=== PATIENT | female | born 1965 | race Caucasian/White ===

== ENCOUNTER 2018-11-15 07:25 | Outpatient (CLI) | payer OTHER ==
[2018-11-15 11:25] LABS: BASOPHILS # (AUTO) 0.1 10^3/uL (0.0-0.1); BASOPHILS % (AUTO) 1.1 %; EOSINOPHILS % (AUTO) 0.7 %; HGB - HEMOGLOBIN 9.7 g/dL (12.0-16.0); LYMPHOCYTES # (AUTO) 1.5 10^3/uL (1.5-3.5); LYMPHOCYTES % (AUTO) 30.4 %; MEAN CORPUSCULAR HEMOGLOBIN 26.5 pg (27.0-31.0); MEAN CORPUSCULAR HGB CONC 32.8 g/dL (32.0-36.0); MEAN CORPUSCULAR VOLUME 80.6 fL (81.0-99.0); MEAN PLATELET VOLUME 8.8 fL (7.9-10.8); MONOCYTES # (AUTO) 0.4 10^3/uL (0.0-1.0); MONOCYTES % (AUTO) 8.2 %; NEUTROPHILS % (AUTO) 59.6 %; PLT - PLATELET COUNT 305 10^3/uL (130-450); RED BLOOD COUNT 3.66 10^6/uL (4.20-5.40); RED CELL DISTRIBUTION WIDTH 22.5 % (12.0-15.0)
[2018-11-15 11:26] LABS: RBC MORPHOLOGY (MULTIPLE) 2+ ANISOCYTOSIS (NORMAL)
[2018-11-15 11:49] LABS: % IRON SATURATION 5 % (20-50); ALBUMIN/GLOBULIN RATIO 1.4 (1.0-2.2); ALKALINE PHOSPHATASE 67 IU/L (42-121); ALT ALANINE AMINOTRANSFERASE 27 IU/L (10-60); AST ASPARTATE AMINOTRANSFERASE 28 IU/L (10-42); BILIRUBIN,TOTAL 0.4 mg/dL (0.2-1.0); BUN - BLOOD UREA NITROGEN 13 mg/dL (6-20); CALCIUM 8.8 mg/dL (8.5-10.3); CARBON DIOXIDE - CO2 25 mmol/L (21-32); CHLORIDE 103 mmol/L (101-111); CHOLESTEROL 189 mg/dL; CREATININE 0.8 mg/dL (0.4-1.0); CRP HIGH SENSITIVITY 2.2 mg/L; GFR - MDRD 75 (>89); GLUCOSE 102 mg/dL (70-100); HDL CHOLESTEROL 64 mg/dL; IRON 20 ug/dL (28-170); LDL CHOLESTEROL,CALCULATED 110 mg/dL; LDL/HDL RATIO 1.7 (<4.4); SODIUM 136 mmol/L (135-145); TOTAL IRON BINDING CAPACITY 398 ug/dL (250-450); TOTAL PROTEIN 6.9 g/dL (6.7-8.2); TRANSFERRIN 284 mg/dL (192-382); VLDL CHOLESTEROL 15 mg/dL
[2018-11-15 11:52] LABS: THYROID STIMULATING HORMONE 2.68 uIU/mL (0.34-5.60)
[2018-11-15 11:56] LABS: FREE T4 (FREE THYROXINE) 0.66 ng/dL (0.58-1.64)
[2018-11-15 11:58] LABS: FERRITIN 8.8 ng/mL (11.0-306.8)
[2018-11-15 15:27] LABS: HB2 TOTAL 9.9 g/dL; HEMOGLOBIN A1C 0.38 g/dL; HEMOGLOBIN A1C % 5.7 % (4.6-6.2)
== END 2018-11-15 07:26 | disposition home or self-care (01) ==
LOC: LAB.F 07:25
PROVIDERS: ATTEND Naturopath
DX: Z00.01 Encounter for general adult medical examination with abnormal findings (principal); Z13.1 Encounter for screening for diabetes mellitus; Z13.29 Encounter for screening for other suspected endocrine disorder; Z13.220 Encounter for screening for lipoid disorders; Z13.0 Encounter for screening for diseases of the blood and blood-forming organs and certain disorders involving the immune mechanism; Z13.6 Encounter for screening for cardiovascular disorders
CPT/HCPCS: 36415; 80053; 80061; 82728; 83036; 83540; 83721; 84439; 84443; 84466; 84481; 85025; 86141